=== PATIENT | female | born 1980 | race Caucasian/White ===

== ENCOUNTER 2017-12-29 08:57 | Emergency (ER) | payer OTHER ==
[~2017-12-29] VITALS: Ht 162.6 cm; Wt 67.6 kg
--- NOTE | 2017-12-29 10:35 | PD ---
HPI Chief Complaint Contractions Date Seen: Dec 29, 2017 Time Seen: 10:30 Travel History International Travel<30 Days: No Contact w/Intl Traveler<30Days: No Known Affected Area: No History of Present Illness HPI 37-year-old primigravida at 39-6/7 weeks gestation who comes complaining of increasing contractions overnight. She denies leakage of fluid or bleeding. She reports good movement. Cervix on arrival was 1 cm 85% effaced. She reports that she was 1 cm and then in the office last check. heart rate is category 1. Contractions are mild to moderate every 3. : 1 History Past Medical History Medical History: Denies Significant Hx Obstetric History Obstetric History Uncomplicated course with Dr. Owens Past Surgical History Surgical History: No Previous Surgery Family History Family History: Negative Social History Alcohol Use: No Tobacco Use: No Substance Abuse: No Allergies-Medications (Allergen,Severity, Reaction): Coded Allergies: ciprofloxacin (Verified Allergy, Severe, hives, nerve pain, 12/29/17) diphenhydramine (Verified Allergy, Severe, hypertension, 12/29/17) Review of Systems Except as stated in HPI: all other systems reviewed are Neg Physical Exam Narrative GENERAL: Well-nourished, well-developed patient. SKIN: Warm and dry. HEAD: Normocephalic and atraumatic. EYES: No scleral icterus. No injection or drainage. ENT: No nasal drainage noted. Mucous membranes pink. Airway patent. NECK: Supple, trachea midline. No JVD. CARDIOVASCULAR: Regular rate and rhythm without murmurs, gallops, or rubs. RESPIRATORY: Breath sounds equal bilaterally. No accessory muscle use. ABDOMEN/GI: Abdomen soft, non-tender, bowel sounds present, no rebound, no guarding Gravid to [-] weeks size Fundal Height: [-] GENITOURINARY: External Genitalia: intact and normal in appearance BUS glands: [-] Cervix: [-] Dilatation: [-1] Effacement: [85-] Station: [-2-] Presentation: [-Vertex] Membranes: [intact ] Uterine Contractions: [-Every 3] FHT's: Category: [1-] Baseline: [-] Reactive: [-] Variability: [-] Decels: [-] EXTREMITIES: No cyanosis or edema. BACK: Nontender without obvious deformity. No CVA tenderness. NEUROLOGICAL: Awake and alert. Motor and sensory grossly within normal limits. Five out of 5 muscle strength in all muscle groups. Normal speech. MDM Medical Record Reviewed: Yes Narrative Course / MDM Assessment: Primigravida in latent labor Plan: The patient was offered home observation versus recheck in 1-2 hours. She opts to stay and be reevaluated. Addendum: Repeat cervical examination in 2 hours demonstrated no change. Patient was discharged home with 100 mg of Vistaril with labor precautions. Diagnosis Diagnosis: Primary Impression: 39 weeks gestation of Additional Impression: Irregular uterine contractions Disposition: 01 DISCHARGE HOME Condition: Good Andres Valente MD Dec 29, 2017 10:35
[2017-12-29] MEDS ORDERED: PREN29TA PO (17:19)
== END 2017-12-29 12:16 | disposition home or self-care (01) ==
LOC: HOBED 08:57
DX: O47.1 False labor at or after 37 completed weeks of gestation (principal); Z3A.39 39 weeks gestation of pregnancy; Z88.8 Allergy status to other drugs, medicaments and biological substances
CPT/HCPCS: 59025

== ENCOUNTER 2017-12-29 15:49 | Inpatient (IN) | payer OTHER ==
[~2017-12-29] VITALS: Ht 162.6 cm; Wt 68.0 kg
[2017-12-29] VITALS (46 sets, daily range): BP systolic 98–159; BP diastolic 29–124; PULSE 61–186; RESP 15–18; TEMP 98.3–98.4; O2SAT 100
--- NOTE | 2017-12-29 16:29 | HHI.HP ---
History & Physical H&P HPI HPI Chief Complaint leaking fluid Date Seen: Dec 29, 2017 Time Seen: 16:24 Travel History International Travel<30 Days: No Contact w/Intl Traveler<30Days: No Known Affected Area: No History of Present Illness HPI 36-year-old primigravida at 39-6/7 weeks gestation who comes with complaint of ruptured membranes. She reports a large amount of clear fluid flowing continuously. No bleeding. She reports her contractions are still irregular. Cervix is not 2 cm 90% effaced -2 station vertex presentation. Gross rupture membranes is noted. History (Limited) History Past Medical History Medical History: Denies Significant Hx Obstetric History Obstetric History care with Dr. Owens from the first trimester. Risk factors: advanced maternal age Past Surgical History Surgical History: No Previous Surgery Family History Family History: Negative Social History Alcohol Use: No Tobacco Use: No Substance Abuse: No Allergies-Medications Allergies-Medications (Allergen,Severity, Reaction): Coded Allergies: ciprofloxacin (Verified Allergy, Severe, hives, nerve pain, 12/29/17) diphenhydramine (Verified Allergy, Severe, hypertension, 12/29/17) ROS Review of Systems Except as stated in HPI: all other systems reviewed are Neg Physical Exam Physical Exam Narrative GENERAL: Well-nourished, well-developed patient. SKIN: Warm and dry. HEAD: Normocephalic and atraumatic. EYES: No scleral icterus. No injection or drainage. ENT: No nasal drainage noted. Mucous membranes pink. Airway patent. NECK: Supple, trachea midline. No JVD. CARDIOVASCULAR: Regular rate and rhythm without murmurs, gallops, or rubs. RESPIRATORY: Breath sounds equal bilaterally. No accessory muscle use. ABDOMEN/GI: Abdomen soft, non-tender, bowel sounds present, no rebound, no guarding Gravid to [-] weeks size Fundal Height: [-] GENITOURINARY: External Genitalia: intact and normal in appearance BUS glands: [-Negative] Cervix: [-] Dilatation: [1] Effacement: [-90] Station: [--2] Presentation: [-Vertex] Membranes: ruptured] Uterine Contractions: [-[id number] irregular] FHT's: Category: [-1] Baseline: [-] Reactive: [-] Variability: [-] Decels: [-] EXTREMITIES: No cyanosis or edema. BACK: Nontender without obvious deformity. No CVA tenderness. NEUROLOGICAL: Awake and alert. Motor and sensory grossly within normal limits. Five out of 5 muscle strength in all muscle groups. Normal speech. Data Data Data Vital Signs Reviewed: Yes Group B Strep: Negative MDM MDM Medical Record Reviewed: Yes Narrative Course / MDM Assessment: 36-year-old primigravida in early labor with ruptured membranes Plan: Patient to be admitted for labor management. Andres Valente MD Dec 29, 2017 16:28 Andres Valente MD Dec 29, 2017 16:29
[2017-12-29] MEDS ORDERED: ONDANSETRON HCL 4 MG/2 ML VIAL IV PUSH PRN (16:30)
[2017-12-29] MEDS ORDERED: MINERAL OIL 10 ML VIAL TOPICAL PRN (16:30)
[2017-12-29] MEDS ORDERED: LIDOCAINE HCL 1% 50 ML VIAL INFIL PRN (16:30)
[2017-12-29] MEDS ORDERED: LIDOCAINE HCL 1% 50 ML VIAL I-DERMAL PRN (16:30)
[2017-12-29] MEDS ORDERED: SODIUM CHLORID 0.9% 500 ML INJ 500 ML IV PRN (16:30)
[2017-12-29] MEDS ORDERED: OXYTOCIN 30 UNITS-500ML PREMIX 500 ML IV ONE (16:30)
[2017-12-29] MEDS ORDERED: CITRIC ACID-SODIUM CITRATE LIQ 30 ML UDC PO SCH (16:30)
[2017-12-29] MEDS ORDERED: SODIUM CHLOR 0.9% 1000 ML INJ 1,000 ML IV PRN (16:42)
[2017-12-29] MEDS ORDERED: OXYTOCIN 30 UNITS-500ML PREMIX 500 ML IV PRN (16:45)
[2017-12-29] MEDS ORDERED: PREN29TA PO (17:19)
[2017-12-29] MEDS: LACTATED RINGER'S 1000 ML INJ 1,000 ML IV SCH ×2 (17:21→23:22)
[2017-12-29 17:22] LABS: HEMOGLOBIN 13.4 GM/DL (11.6-15.3); MEAN CORPUSCULAR HEMOGLOBIN 31.2 PG (27.0-34.0); MEAN CORPUSCULAR HGB CONC 34.3 % (32.0-36.0); MEAN PLATELET VOLUME 9.9 FL (7.0-11.0); PLATELET COUNT 180 TH/MM3 (150-450); RED BLOOD COUNT 4.29 MIL/MM3 (4.00-5.30); RED CELL DISTRIBUTION WIDTH 13.4 % (11.6-17.2)
[2017-12-29] MEDS: LACTATED RINGER'S 1000 ML INJ 1,000 ML IV PRN ×2 (17:22→18:14)
[2017-12-29 17:23] LABS: AUTOMATED NEUTROPHIL # 6.7 TH/MM3 (1.8-7.7); BASOPHIL % 0.4 % (0.0-2.0); EOSINOPHIL % 0.3 % (0.0-4.0); LYMPH % 20.9 % (9.0-44.0); LYMPHOCYTE # 1.9 TH/MM3 (1.0-4.8); MONO % 4.4 % (0.0-8.0); MONOCYTE # 0.4 TH/MM3 (0-0.9)
[2017-12-29] MEDS ORDERED: fentaNYL 2MCG-BUPIV 0.125% INJ 100 ML ONE (17:25)
[2017-12-29] MEDS ORDERED: ePHEDrine/NS 25 MG/5 ML SYRINGE ONE (17:26)
[2017-12-29 17:57] LABS: BACTERIA, URINE RARE /hpf; BILIRUBIN, URINE NEG (NEG); BLOOD, URINE SMALL (NEG); GLUCOSE,URINE NEG (NEG); KETONE, URINE TRACE mg/dL (NEG); MUCUS URINE FEW /lpf (OCC); NITRITE,URINE NEG (NEG); PH, URINE 5.5 (5.0-8.5); SQUAMOUS EPITHELIAL CELL URINE 3 /hpf (0-5); URINE COLOR YELLOW (YELLW/STRAW); URINE LEUKOCYTE ESTERASE TRACE (NEG)
[2017-12-29] MEDS ORDERED: NO SYSTEM NARCOTICS PRN (19:15)
[2017-12-29] MEDS ORDERED: ePHEDrine/NS 25 MG/5 ML SYRINGE IV PUSH PRN (19:15)
[2017-12-29] MEDS ORDERED: DO NOT ADMINISTER ANTICOAGULANTS PRN (19:15)
[2017-12-29] MEDS ORDERED: fentaNYL 2MCG-BUPIV 0.125% 100 ML EPIDURAL SCH (19:15)
[2017-12-30] VITALS (23 sets, daily range): BP systolic 98–135; BP diastolic 48–103; PULSE 62–110; RESP 16–20; TEMP 98.1–100.1
[2017-12-30] MEDS ORDERED: LIDOCAINE HCL 1% 20 ML VIAL ONE (02:41)
[2017-12-30] MEDS ORDERED: SODIUM CHLORIDE 0.9% FLUSH 10 ML FLUSH IV FLUSH PRN (07:15)
[2017-12-30] MEDS ORDERED: ALUMINUM/MAGNESIUM/SIMETH 30 ML CUP PO PRN (07:15)
[2017-12-30] MEDS ORDERED: ONDANSETRON ODT 4 MG TAB PO PRN (07:15)
[2017-12-30] MEDS ORDERED: OXYTOCIN 30 UNITS-500ML PREMIX 500 ML IV SCH (07:15)
[2017-12-30] MEDS ORDERED: DOCUSATE SODIUM 50 MG/SENNA 8.6 MG TAB PO PRN (07:15)
[2017-12-30] MEDS ORDERED: OXYTOCIN 10 UNIT/ML AMP XX PRN (07:15)
[2017-12-30] MEDS ORDERED: BENZOCAINE 20% TOPICAL SPRAY 60 ML CAN TOPICAL PRN (07:15)
[2017-12-30] MEDS ORDERED: ACETAMINOPHEN 325 MG TAB PO PRN (07:15)
[2017-12-30] MEDS ORDERED: WITCH HAZEL 50%/GLYCERIN 12.5% 40 PAD JAR TOPICAL PRN (07:15)
[2017-12-30] MEDS ORDERED: ZOLPIDEM TARTRATE 5 MG TAB PO PRN (07:15)
--- NOTE | 2017-12-30 07:19 | PD.OB.DELI ---
Weeks gestation: 40 Gest age assessed date: Dec 30, 2017 Gest age assessed time: 16:00 Pt started active labor?: No Medical induction of labor?: No Artificial rupture of membrane: No Anesthesia: Epidural Episiotomy: None Vaginal Delivery: Vacuum (secondary to maternal exhaustion and pushing for 3.5 hours) Presentation: Occiput anterior Nuchal Cord: None Delayed cord clamping (45 sec): No Infant: Male, Single Delivery date: Dec 30, 2017 Delivery time: 06:11 One Minute : 2 Five Minute : 6 Ten Minute : 9 Weight: 8-3 Placenta: Spontaneous delivery, Intact, 3 vessel cord Laceration: Perineal laceration, 2 deg Repair: Chromic running Estimated blood loss: 300 ml Additional Information right labial laceration repaired with 3-0 chromic Emanuel Etienne MD Dec 30, 2017 07:19
[2017-12-30] MEDS: KETOROLAC TROMETHAMINE 30 MG/ML (IVP) VIAL IV PUSH PRN ×3 (07:37→21:23)
[2017-12-30] MEDS ORDERED: SODIUM CHLORIDE 0.9% FLUSH 10 ML FLUSH IV FLUSH SCH (09:00)
[2017-12-30] MEDS ORDERED: ACETAMINOPHEN/CODEINE 300 MG/30 MG TAB PO PRN (09:30)
[2017-12-30] MEDS ORDERED: MEASLES, MUMPS, RUBELLA VACCINE 0.5 ML VIAL SQ ONE (16:00)
[2017-12-30] MEDS ORDERED: DIPHTH/TETANUS/ACEL PERTUSSIS (BOOSTER) 0.5 ML VIAL/PFS IM ONE (16:00)
[2017-12-31] MEDS: KETOROLAC TROMETHAMINE 30 MG/ML (IVP) VIAL IV PUSH PRN (05:00)
[2017-12-31 07:20] VITALS: BP 98/62; PULSE 72; RESP 17; TEMP 97.8
[2017-12-31] MEDS ORDERED: IBUPROFEN 600 MG TAB PO PRN ×2 (11:00→11:30)
[2017-12-31] MEDS ORDERED: ACETAMINOPHEN/CODEINE 300 MG/30 MG TAB PO PRN (11:30)
[2017-12-31] MEDS ORDERED: IBUP-232 PO (12:18)
[2017-12-31] MEDS ORDERED: ACET1TAB94 PO (12:18)
--- NOTE | 2017-12-31 12:20 | HHI.OB ---
Subjective Post Day: 1 Remarks pain controlled, mod lochia, charlene po, +void, flatus, considering going home. baby being observed in NICU. Objective Vitals/I&O Vital Signs Date Time Temp Pulse Resp B/P (MAP) Pulse Ox O2 Delivery O2 Flow Rate FiO2 12/31/17 07:20 97.8 72 17 98/62 (74) 12/30/17 21:30 98.1 80 16 102/61 (75) Objective Remarks GENERAL: Well-nourished, well-developed patient. CARDIOVASCULAR: Regular rate and rhythm without murmurs, gallops, or rubs. RESPIRATORY: Breath sounds equal bilaterally. No accessory muscle use. ABDOMEN/GI: Abdomen soft, non-tender. Fundus: Firm, non-tender at umbilicus. GENITOURINARY: Light to moderate bleeding. EXTREMITIES: No cyanosis or edema, non-tender, without signs of DVT. Medications and IVs Current Medications Medications (Trade) Dose Ordered Sig/Ana Maria Route Start Time Stop Time Status Last Admin Lactated Ringer's 1,000 ml @ 125 mls/hr Q8H IV 12/29/17 16:22 12/29/17 23:22 Lactated Ringer's 1,000 ml @ 3,000 mls/hr Q20M PRN IV 12/29/17 16:22 12/29/17 18:14 Sodium Chloride 1,000 ml @ 100 mls/hr Q10H PRN IV 12/29/17 16:42 (Xylocaine 1% Inj (50 ml)) 0.1 ml UNSCH X1 PRN I-DERMAL 12/29/17 16:30 01/01/18 16:29 (Bicitra Liq) 30 ml CUT FILE CLERK PO 12/29/17 16:30 01/02/18 16:29 (Zofran Inj) 4 mg Q6H PRN IV PUSH 12/29/17 16:30 (Xylocaine 1% Inj (50 ml)) 10 ml UNSCH X1 PRN INFIL 12/29/17 16:30 12/31/17 16:29 (Muri-Lube Oil) 10 ml UNSCH PRN TOPICAL 12/29/17 16:30 Oxytocin 500 ml @ 2 mls/hr TITRATE PRN IV 12/29/17 16:45 12/29/17 18:22 Fentanyl/ Bupivacaine HCl 100 ml @ 0 mls/hr TITRATE EPIDURAL 12/29/17 19:15 (NS Flush) 2 ml BID IV FLUSH 12/30/17 09:00 (NS Flush) 2 ml UNSCH PRN IV FLUSH 12/30/17 07:15 (Tylenol) 650 mg Q4H PRN PO 12/30/17 07:15 (Americaine 20% Top Spr) 1 spray Q4H PRN TOPICAL 12/30/17 07:15 12/30/17 21:23 (Tucks Pads) 1 applic QID PRN TOPICAL 12/30/17 07:15 12/30/17 21:23 (Nataliia-Colace) 2 tab Q12H PRN PO 12/30/17 07:15 (Ambien) 5 mg HS PRN PO 12/30/17 07:15 (Mag-Al Plus Susp Liq) 15 ml Q8H PRN PO 12/30/17 07:15 (Zofran Odt) 4 mg Q6H PRN PO 12/30/17 07:15 (Motrin) 600 mg Q6H PRN PO 12/31/17 11:00 12/31/17 12:16 (Motrin) 600 mg Q6H PRN PO 12/31/17 11:30 (Tylenol-Codeine #3) 2 tab Q6H PRN PO 12/31/17 11:30 12/31/17 12:17 Assessment/Plan Problem List: (1) Spontaneous vaginal delivery ICD Codes: O80 - Encounter for full-term uncomplicated delivery Plan: routine pp care Emanuel Etienne MD Dec 31, 2017 12:20
== END 2017-12-31 18:58 | disposition home or self-care (01) | DRG 775 ==
LOC: HOBED 15:49 → H2EB 16:35 → H1EA 12-30 08:39
PROVIDERS: ADMIT Obstetrics & Gynecology; ATTEND Obstetrics & Gynecology
PROC: 10D07Z6 Extraction of Products of Conception, Vacuum, Via Natural or Artificial Opening (ICD-10-PCS; principal; 2017-12-30)
PROC: 0KQM0ZZ Repair Perineum Muscle, Open Approach (ICD-10-PCS; 2017-12-30)
PROC: 0UQMXZZ Repair Vulva, External Approach (ICD-10-PCS; 2017-12-30)
DX: O70.1 Second degree perineal laceration during delivery (principal); Z37.0 Single live birth; O47.1 False labor at or after 37 completed weeks of gestation; O70.0 First degree perineal laceration during delivery; O75.81 Maternal exhaustion complicating labor and delivery; Z3A.39 39 weeks gestation of pregnancy; Z23 Encounter for immunization; Z88.8 Allergy status to other drugs, medicaments and biological substances
CPT/HCPCS: 59025; 80307; 81001; 82805; 84112; 85025; 86900; 86901; J1885; J2590; J7120